=== PATIENT | female | born 1980 | race Caucasian/White ===

== ENCOUNTER 2021-04-09 18:06 | Emergency (ER) | payer SELFPAY ==
[~2021-04-09] VITALS: Ht 152.4 cm; Wt 82.0 kg
[~2021-04-09 18:06] MED LIST: NO HOME MEDS; PENICILLN VK500 MG PO; ULTRAM50 MG OR
[2021-04-09 18:58] VITALS: BP 133/81
== END 2021-04-09 18:58 | disposition home or self-care (01) | DRG 93 ==
LOC: ED 18:06
DX: R20.2 Paresthesia of skin (principal); F41.9 Anxiety disorder, unspecified

== ENCOUNTER 2022-02-20 07:26 | Emergency (ER) | payer SELFPAY ==
[2022-02-20] VITALS (10 sets, daily range): BP systolic 113–144; BP diastolic 64–87
[~2022-02-20] VITALS: Ht 152.4 cm; Wt 81.8 kg
[2022-02-20] MEDS ORDERED: METOPROL TAR25 MG PO (07:55)
[2022-02-20 07:58] LABS: URINE BILIRUBIN - DIPSTICK NEGATIVE (NEGATIVE); URINE BLOOD DIPSTICK LARGE (NEGATIVE); URINE COLOR YELLOW; URINE GLUCOSE - DIPSTICK NEGATIVE (NEGATIVE); URINE KETONE NEGATIVE (NEGATIVE); URINE LEUK ESTERASE TRACE (NEGATIVE); URINE PROTEIN - DIPSTICK 30 mg/dL (NEG-TRACE); URINE SPECIFIC GRAVITY >=1.030; URINE UROBILINOGEN - DIPSTICK 0.2 E.U./dL (0.2)
[2022-02-20 07:58] LABS: HEMATOCRIT 38.1 % (37.0-47.0); HEMOGLOBIN 12.4 g/dl (12.0-16.0); IMMATURE GRANULOCYTES 0.1 % (0.0-5.0); MEAN CELL VOLUME 89.9 fL CALC (80.0-100.0); MEAN CORPUSCULAR HGB 29.2 pG CALC (26.0-32.0); MEAN CORPUSCULAR HGB CONC 32.5 g/dL CAL (32.0-36.0); NEUT# 5.42 thou/uL (2.00-7.15); RED BLOOD COUNT 4.24 mill/uL (4.20-5.60); RED CELL DISTRI WIDTH 12.7 % (11.5-15.5)
[2022-02-20 08:06] LABS: URINE NITRITE - DIPSTICK NEGATIVE (Negative)
[2022-02-20 08:07] LABS: URINE RBC >100 RBC/hpf (0-5)
[2022-02-20 08:08] LABS: URINE BACTERIA MANY hpf; URINE SQUAMOUS EPITHELIAL CELL MODERATE EPI/hpf (0-FEW)
[2022-02-20 08:12] LABS: ALBUMIN 4.4 g/dL (3.2-5.0); ALKALINE PHOSPHATASE 66 u/l (38-126); ANION GAP 15 (6-22 (CALC)); BILIRUBIN, TOTAL 0.3 mg/dL (0.0-1.4); BUN 12 mg/dL (7-17); BUN/CREATININE RATIO 17 (12-20 (CALC)); CARBON DIOXIDE 26 mmol/l (22-30); CHLORIDE 103 mmol/l (95-108); CREATININE 0.7 mg/dL (0.5-1.0); GFR > 60 ML/MIN (>=60 (CALC)); GFR FOR AFR.AMER. > 60 ML/MIN (>=60 (CALC)); POTASSIUM 3.5 mmol/l (3.5-5.1); SGOT/AST 17 u/l (14-36); SODIUM 141 mmol/l (137-146); TOTAL PROTEIN 8.3 g/dL (6.3-8.2)
[2022-02-20 08:20] LABS: AMYLASE 84 u/l (30-110); LIPASE 53 u/l (23-300)
[2022-02-20] MEDS ORDERED: NAPROXEN500 MG PO (09:24)
[2022-02-20] MEDS ORDERED: CIPROFLOXACN500 MG PO (09:24)
[2022-02-20] MEDS ORDERED: TAMSULOSIN0.4 MG PO (09:24)
[2022-02-20] MEDS ORDERED: ONDANSETRON4 MG PO (09:24)
== END 2022-02-20 10:02 | disposition home or self-care (01) | DRG 694 ==
LOC: ED 07:26
PROVIDERS: Emergency Medicine
DX: N20.0 Calculus of kidney (principal); N39.0 Urinary tract infection, site not specified; I10 Essential (primary) hypertension; F41.9 Anxiety disorder, unspecified
CPT/HCPCS: Q9967